=== PATIENT | male | born 1985 | race Caucasian/White ===

== ENCOUNTER 2017-01-21 18:57 | Emergency (ER) | payer OTHER ==
[~2017-01-21] VITALS: Ht 182.9 cm; Wt 93.4 kg
--- NOTE | 2017-01-21 19:05 | NUR ---
PT AMBULATORY TO ER BED 10. C/O HEAD R SIDE RIB AND YULIYA PAIN S/P SLIP AND FALL ON A GREASY FLOOR LAST SUNDAY. DENIES KO. PT IS AAOX3. NO C/O DIZZINESSS. NAD NOTED. AWAITING MD LI.
--- NOTE | 2017-01-21 19:26 | NUR ---
DR NOLASCO AT BEDSIDE FOR EVAL.
[2017-01-21] MEDS ORDERED: IBUPROFEN 600 MG TABLET PO ONE (20:44)
[2017-01-21] MEDS: IBUPROFEN 600 MG TABLET PO ONE (20:50)
--- NOTE | 2017-01-21 21:18 | NUR ---
PT REFUSINGH TO TAKE PRESCRIPTION. D/C IN STABLE CONDITION.
[2017-01-21 21:24] VITALS: BP 132/77
== END 2017-01-21 21:24 | disposition home or self-care (01) ==
LOC: ER 19:30
DX: S40.021A Contusion of right upper arm, initial encounter (principal); S00.03XA Contusion of scalp, initial encounter; W01.0XXA Fall on same level from slipping, tripping and stumbling without subsequent striking against object, initial encounter; Y93.89 Activity, other specified; Y92.89 Other specified places as the place of occurrence of the external cause; Y99.0 Civilian activity done for income or pay; J45.909 Unspecified asthma, uncomplicated
CPT/HCPCS: 70450; 71100; 99284; A4606; Z7610

== ENCOUNTER 2018-03-04 17:22 | Emergency (ER) | payer MEDICAID, OTHER ==
[~2018-03-04] VITALS: Ht 172.7 cm; Wt 81.6 kg
[2018-03-04] MEDS ORDERED: DEXAMETHASONE SOD PHOSPHATE 10 MG/ML VIAL IV ONE (18:30)
[2018-03-04] MEDS ORDERED: IV NS 0.9% 1,000 ML BAG IV ONE (18:30)
[2018-03-04] MEDS ORDERED: KETOROLAC TROMETHAMINE INJ 30 MG/ML VIAL IV ONE (18:30)
[2018-03-04] MEDS ORDERED: ONDANSETRON HCL/PF 4 MG/2 ML VIAL IVP ONE (18:30)
--- NOTE | 2018-03-04 18:30 | NUR ---
A/OX4, SORETHROAT/SWELLING X 2 DAYS, VOMITING WHEN HE TRIES TO TAKE SOMETHING. NAD VSS RR EVEN AND UNLABORED. PT DIRECTED TO ED BED 15
[2018-03-04] MEDS ORDERED: DEXAMETHASONE SOD PHOSPHATE 10 MG/ML VIAL ONE (18:47)
[2018-03-04] MEDS ORDERED: ONDANSETRON HCL/PF 4 MG/2 ML VIAL ONE (18:48)
[2018-03-04] MEDS ORDERED: KETOROLAC TROMETHAMINE INJ 30 MG/ML VIAL ONE (18:48)
[2018-03-04 19:04] LABS: BASOPHILS # (AUTO) 0.1 /CMM (0.0-0.2); EOSINOPHILS % (AUTO) 0.4 % (0.0-6.0); HEMATOCRIT 50 % (39-51); HEMOGLOBIN 17.5 g/dL (13.5-17.5); LYMPHOCYTES # (AUTO) 1.3 /CMM (0.8-4.8); LYMPHOCYTES % (AUTO) 12.3 % (20.0-44.0); MEAN CORPUSCULAR HEMOGLOBIN 34 PG (26.0-33.0); MEAN CORPUSCULAR HGB CONC 35 g/dl (31.0-36.0); MEAN CORPUSCULAR VOLUME 96 fL (80-96); MONOCYTES # (AUTO) 0.7 /CMM (0.1-1.30); MONOCYTES % (AUTO) 6.6 % (2.0-12.0); NEUTROPHILS # (AUTO) 8.8 /CMM (1.8-8.9); NEUTROPHILS % (AUTO) 79.7 % (43.0-81.0); PLATELET COUNT (AUTO) 267 /CMM (150-450); RDW COEFFICIENT OF VARIATION 12.5 (11.5-15.0); RED BLOOD CELL COUNT(AUTO) 5.19 MIL/uL (4.5-6.0); WHITE BLOOD COUNT (AUTO) 10.9 K/uL (4.3-11.0)
[2018-03-04 19:17] LABS: CALCIUM, SERUM 9.3 mg/dL (8.5-10.1); CREATININE 0.9 mg/dL (0.6-1.3)
[2018-03-04 19:22] LABS: ALBUMIN 3.7 g/dL (3.4-5.0); BILIRUBIN,DIRECT 0.1 mg/dL (0.0-0.2); BILIRUBIN,TOTAL 0.4 mg/dL (0.2-1.0); TOTAL PROTEIN, SERUM 7.1 g/dL (6.4-8.2)
[2018-03-04] MEDS ORDERED: IOHEXOL-300 100 ML VIAL IV ONE (19:31)
[2018-03-04 19:55] LABS: MONOTEST NEGATIVE (NEGATIVE)
[2018-03-04] MEDS ORDERED: HYDROCODONE/APAP 5/325MG 1 EACH TABLET ONE (20:14)
[2018-03-04 21:22] VITALS: BP 155/84
== END 2018-03-04 21:22 | disposition home or self-care (01) ==
LOC: ER 17:23
DX: J02.9 Acute pharyngitis, unspecified (principal); J45.909 Unspecified asthma, uncomplicated; R11.10 Vomiting, unspecified; Z87.820 Personal history of traumatic brain injury
CPT/HCPCS: 36415; 70491; 80048; 80076; 85025; 86308; 87070; 87880; 96361; 96374; 96375; 99285; A4606; J1100; J1885; J2405; J7030; Q9967; Z7610; 86403-TC